=== PATIENT | male | born 1960 | race American Indian/Alaskan Native ===

== ENCOUNTER 2019-10-03 05:50 | Day surgery (SDC) | payer MEDICARE ==
[~2019-10-03 05:50] MED LIST: LACTATED RINGERS 1,000 ML IV SCH
[2019-10-03] MEDS ORDERED: MIDAZOLAM 2 MG/2 ML INJ IV NR (06:00)
[2019-10-03] MEDS ORDERED: BACTERIOSTATIC SODIUM CHLORIDE 0.9% 30 ML VIAL INFILTRATI ONE (06:47)
--- NOTE | 2019-10-03 07:17 | Anesthesia Consultation ---
Anesthesia Consult and Med Hx Date of service: 10/03/19 - Airway Anesthetic Teeth Evaluation: Poor (reports loose right top molars) ROM Head & Neck: Adequate Mental/Hyoid Distance: Adequate Mallampati Class: Class III Intubation Access Assessment: Possibly Difficult - Pulmonary Exam CTA: Yes - Cardiac Exam Cardiac Exam: RRR - Pre-Operative Health Status ASA Pre-Surgery Classification: ASA2 Proposed Anesthetic Plan: General - Pulmonary Hx Smoking: Yes (10pk yr hx) Hx Respiratory Symptoms: No COPD: No - Cardiovascular System Hx Hypertension: No Hx Heart Attack/AMI: No Hx Percutaneous Transluminal Coronary Angioplasty (PTCA): No - Central Nervous System CVA: No Hx Back Pain: Yes (CHRONIC - TO CHILANGO LEGS-RT LEG WORSE) - Gastrointestinal Hx Gastroesophageal Reflux Disease: No - Endocrine Hx Renal Disease: No Hx Liver Disease: No Hx Insulin Dependent Diabetes: No Hx Non-Insulin Dependent Diabetes: No Hx Thyroid Disease: No - Other Systems Hx Obesity: Yes (BMI 33) - Additional Comments Anesthesia Medical History Comments: No hx anesthetic complications. Discussed risk of further damage or dislodgement of loose teeth.
--- NOTE | 2019-10-03 07:17 | Anesthesia Day of Surgery ---
Anesthesia Day of Surgery - Day of Surgery Patient Examined: Yes Patient H&P Reviewed: Yes Patient is NPO: Yes
[2019-10-03] MEDS ORDERED: HYDROmorphone 1 MG/1 ML INJ ONE (07:22)
[2019-10-03] MEDS ORDERED: LIDOCAINE MPF (2%) 20 MG/1 ML VIAL 5 ML ONE (07:23)
[2019-10-03] MEDS ORDERED: PROPOFOL 200 MG/20 ML VIAL IV ONE ×2 (07:23→08:02)
[2019-10-03] MEDS ORDERED: ceFAZolin/STERILE WATER 2 GM/20 ML SYRINGE IV NR (08:00)
[2019-10-03] MEDS ORDERED: KETAMINE/STERILE WATER 50 MG/ML SYRINGE ONE (08:33)
[2019-10-03] MEDS ORDERED: LIDOCAINE 2% UROJECT 10 ML JELLY ONE (08:34)
[2019-10-03] MEDS ORDERED: LIDOCAINE 2% JELLY 30 ML TP ONE (08:35)
[2019-10-03] MEDS ORDERED: dexAMETHasone 20 MG/5 ML VIAL ONE (08:55)
[2019-10-03] MEDS ORDERED: ONDANSETRON 4 MG/2 ML INJ ONE (08:55)
[2019-10-03] MEDS ORDERED: SUCCINYLCHOLINE CHLORIDE 200 MG/10 ML INJ MDV ONE (09:08)
--- NOTE | 2019-10-03 09:13 | Operative Report ---
INDICATIONS: The patient has bladder outlet obstruction. Cystoscopy showed a prominent, but very small middle lobe from the left lobe of the prostate. He has 2 small lateral lobes. He had obstructive pattern on urodynamics now presents for resume therapy. PREOPERATIVE DIAGNOSIS: Bladder outlet obstruction. POSTOPERATIVE DIAGNOSIS: Bladder outlet obstruction. PROCEDURE: Cystoscopy, resume therapy. SURGEON: Dr. Gonzalez. ANESTHESIA: General. FINDINGS: As above. DESCRIPTION OF PROCEDURE: The patient was brought to the operating room and placed on the operating table. Following induction of anesthesia, he was placed in lithotomy position. The anesthesia did not seem to be taking. I told them we could try MAC, but there was some anatomic abnormality in the epiglottis or by the vocal cords. They tried to get a tube in, it was not successful, so they used just ventilation and the patient was breathing on his own. Cystoscopy showed this middle lobe with bilateral lateral lobes, which were not that prominent. The urethra was quite elongated and we had to be very careful not to undermine any part of the urethra and careful not to create a false passage. Once we got into the bladder, we backed out 1 cm, we were able to get the middle lobe on the patient's left side and the lateral lobes. Two Sticks on the left lateral lobe, one on the right. The patient tolerated the procedure well. Middle lobe was treated as well. An 18 coude catheter was easily placed, was draining clear, irrigated freely and tolerated the surgical procedure well and will be watched for any posterior pharyngeal edema. JOB# [id number] CATE/RENETTA
[2019-10-03] MEDS: HYDROmorphone 1 MG/1 ML INJ IV PRN ×2 (09:15→09:30)
--- NOTE | 2019-10-03 10:47 | Post Operative Note ---
Date of procedure: 10/03/19 Pre-op diagnosis: BETANCOURT Post-op diagnosis: same Findings: cysto rezum Procedure: cysto rezum Anesthesia: GETA Surgeon: JIAN MEZA Estimated blood loss: none Pathology: none Condition: stable Disposition: PACU
--- NOTE | 2019-10-03 10:49 | Discharge Summary ---
Short Stay Discharge Plan Activity: other (no straining ) Weight Bearing Status: Full Weight Bearing Diet: low fat, low cholesterol, low salt Special Instructions: other (inc fluids ) Durable Medical Equipment Needed Upon Discharge: other Follow up with: CASSIE SHAW MD [Primary Care Provider] - 7 Days JIAN MEZA MD [Staff Physician] - 7 Days
[2019-10-03 11:57] VITALS: BP 126/75
--- NOTE | 2019-10-03 12:02 | Post Anesthesia Evaluation ---
- Post Anesthesia Evaluation Patient Participated: Yes Airway Patent: Yes Stable Respiratory Function: Yes Nausea/Vomiting: No Temp > 96.8F: Yes Pain Manageable: Yes Adequeate Hydration: Yes Anesthesia Complications: No
== END 2019-10-03 05:51 | disposition home or self-care (01) ==
LOC: OR 05:50
PROVIDERS: ATTEND Urology
DX: N32.0 Bladder-neck obstruction (principal); E66.9 Obesity, unspecified; F17.210 Nicotine dependence, cigarettes, uncomplicated; Z79.899 Other long term (current) drug therapy; Z68.33 Body mass index [BMI] 33.0-33.9, adult; Z98.890 Other specified postprocedural states
CPT/HCPCS: 53854; J0330; J0690; J1100; J1170; J2250; J2405; J2704; J7120